=== PATIENT | female | born 1990 | race Two or more races ===

== ENCOUNTER 2021-10-21 12:32 | Emergency (ER) | payer MEDICAID, OTHER ==
[~2021-10-21] VITALS: Ht 160 cm; Wt 52.2 kg
[2021-10-21 12:37] VITALS: BP 105/61
[2021-10-21] MEDS ORDERED: HYDROcodone-ACET 10/325MG TAB PO ONE (13:30)
[2021-10-21] MEDS ORDERED: AZIT1POW PO (15:30)
[2021-10-21] MEDS ORDERED: HYDR-4902 PO (15:32)
[2021-10-21] MEDS ORDERED: ONDANSETRON ODT 4 MG TAB PO ONE (17:00)
== END 2021-10-21 17:42 | disposition home or self-care (01) ==
LOC: ER 12:32
DX: S09.90XA Unspecified injury of head, initial encounter (principal); J01.00 Acute maxillary sinusitis, unspecified; F12.10 Cannabis abuse, uncomplicated; J45.909 Unspecified asthma, uncomplicated; W22.8XXA Striking against or struck by other objects, initial encounter; Y93.89 Activity, other specified; Y92.89 Other specified places as the place of occurrence of the external cause; Y99.8 Other external cause status
CPT/HCPCS: 70450; 99284; Q0162